=== PATIENT | male | born 1955 | race Caucasian/White ===

== ENCOUNTER 2020-03-31 04:46 | Emergency (ER) | payer MEDICARE, OTHER ==
[2020-03-31] MEDS ORDERED: Dexamethasone 10 MG/ML VIAL ONE (05:03)
[2020-03-31] MEDS ORDERED: Albuterol 200 PUFF (6.7GM INHALER) ONE (05:05)
--- NOTE | 2020-03-31 08:09 | RAD ---
PORTABLE CHEST: DATE: 03/31/2020. PROVIDED CLINICAL HISTORY: Difficulty breathing. FINDINGS: Cardiac and mediastinal silhouette is within normal limits. No focal consolidation, pleural fluid, o r pneumothorax apparent. IMPRESSION: No evidence for an acute cardiopulmonary process. POS: JESIKA
--- NOTE | 2020-04-02 15:18 | EKG ---
Test Reason : SOB Blood Pressure : / mmHG Vent. Rate : 088 BPM Atrial Rate : 088 BPM P-R Int : 128 ms QRS Dur : 100 ms QT Int : 362 ms P-R-T Axes : 007 -15 011 degrees QTc Int : 438 ms Normal sinus rhythm Normal ECG Confirmed by JORGE FOX M.D. ([id number]), news copy editor JELENA COHEN ([id number]) on 04/02/2020 3:17:42 PM Referred By: Confirmed By:JORGE FOX M.D.
== END 2020-03-31 06:07 | disposition home or self-care (01) ==
LOC: ERS 04:46
DX: U07.1 COVID-19 (principal)
CPT/HCPCS: 71045; 93005; J1100

== ENCOUNTER 2020-03-31 15:31 | Emergency (ER) | payer MEDICARE, OTHER | END 2020-03-31 16:03 | disposition home or self-care (01) | LOC: ERS 15:31 | DX: U07.1 COVID-19 (principal); Z79.51 Long term (current) use of inhaled steroids | CPT/HCPCS: 99282 ==